=== PATIENT | female | born 1995 | race Caucasian/White ===

== ENCOUNTER 2017-03-27 00:25 | Emergency (ER) | payer SELFPAY ==
[~2017-03-27] VITALS: Ht 170.2 cm; Wt 68.2 kg
[~2017-03-27 00:25] MED LIST: ALBUTEROL0.09 MG/A4 IH; ZITHROMAX Z PA250 MG PO
[2017-03-27 00:31] VITALS: BP 126/75; TEMP 98
[2017-03-27 01:27] VITALS: PULSE 97
== END 2017-03-27 01:30 | disposition home or self-care (01) ==
LOC: COL.ER 00:25
DX: S61.212A Laceration without foreign body of right middle finger without damage to nail, initial encounter (principal); W25.XXXA Contact with sharp glass, initial encounter; Y92.009 Unspecified place in unspecified non-institutional (private) residence as the place of occurrence of the external cause

== ENCOUNTER 2017-04-06 13:05 | Emergency (ER) | payer OTHER ==
[2017-04-06 13:24] VITALS: BP 115/63; PULSE 88; TEMP 98.5
== END 2017-04-06 13:29 | disposition home or self-care (01) ==
LOC: COL.ER 13:05
DX: Z48.02 Encounter for removal of sutures (principal)

== ENCOUNTER → 2018-08-15 | Outpatient (CLI) | payer OTHER | LOC: MC.RAD 12:46 | DX: N64.4 Mastodynia (principal) ==

== ENCOUNTER 2018-08-31 19:13 | Emergency (ER) | payer OTHER ==
[~2018-08-31] VITALS: Ht 170.2 cm; Wt 77.3 kg
[2018-08-31 19:15] VITALS: TEMP 97.3
[2018-08-31] MEDS ORDERED: PREDNISONE20 MG PO (19:31)
[2018-08-31 20:13] VITALS: BP 117/72; PULSE 81
== END 2018-08-31 20:14 | disposition home or self-care (01) ==
LOC: COL.ER 19:13
DX: R21 Rash and other nonspecific skin eruption (principal)
CPT/HCPCS: J7512

== ENCOUNTER → 2019-06-02 | Outpatient (CLI) | payer OTHER ==
[~2019-06-02] VITALS: Ht 170.2 cm; Wt 83.0 kg
[~2019-06-02] MED LIST changes: +PREDNISONE20 MG PO; +PRENATAL PO
--- NOTE | 2019-06-02 16:30 | NUR ---
Pt here with decreased movement, 25.5 weeks gestation, G1L0. Pt states she hasn't felt "the normal kicks" but have felt him turning. Pt to [facility], explained. 1645:Pt states feeling the baby kick now that she has been on the monitor. FHR 135-140bpm with accels and moderate variability. [address] Mehta called and notified, see physician notification. Strip reviewed by Aayush RANDHAWA Discharge instructions given, pt verbalizes understanding. 1705:Pt to personal vehicle.
== END ==
LOC: LDRO 16:26
DX: O36.8130 Decreased fetal movements, third trimester, not applicable or unspecified (principal); Z3A.29 29 weeks gestation of pregnancy

== ENCOUNTER 2019-09-14 02:25 | Inpatient (IN) | payer OTHER ==
[2019-09-14] VITALS (48 sets, daily range): BP systolic 74–129; BP diastolic 43–93; PULSE 70–108; TEMP 97.9–98.3
[~2019-09-14] VITALS: Ht 170.2 cm; Wt 96.4 kg
[2019-09-14 04:14] LABS: BASO % 0.3 % (0.0-2.0); EOS # 0.3 (0.0-0.7); EOS % 2.2 % (0-4.0); GRAN # 9.4 (1.4-6.5); GRAN % 72.9 % (42.2-75.2); HEMOGLOBIN 10.4 g/dl (12.5-16.0); LYMPH # 2.3 (1.2-3.4); LYMPH % 17.7 % (20.0-51.0); MEAN CELL VOLUME 80 fl (80.0-100.0); MEAN CORPUSCULAR HEMOGLOBIN 26 pg (27.0-31.0); MEAN CORPUSCULAR HGB CONC 33 g/dl (33.0-37.0); MEAN PLATELET VOLUME 10.6 fl (7.4-10.4); MONO # 0.8 (0.1-0.6); PLATELET COUNT 154 K/mm3 (130-400); RED BLOOD COUNT 3.97 M/mm3 (4.10-5.30); REDCELL DISTRIBUTION WIDTH-CV 13.2 % (11.5-14.5)
[2019-09-14 04:15] LABS: HEMATOCRIT 31.6 % (37.0-47.0)
--- NOTE | 2019-09-14 06:15 | NUR ---
Report from Stanislav Mendoza RN and care of patient assumed. RN at bedside to introduce self and review plan of care. Patient resting comfortably with epidural. Patient denies need. Call light in reach.
[2019-09-14] MEDS ORDERED: PRENATAL (06:34)
--- NOTE | 2019-09-14 07:15 | NUR ---
See physician notification. Discussing order recommendations for Pitocin augmentation with patient. Patient denies questions and agrees. 0735- Pitocin started at 2 mU per protocol and order.
--- NOTE | 2019-09-14 08:25 | NUR ---
Dr. Terry at bedside. Reviews FHR strip. Discussing plan of care for potential AROM, patient agrees. 0827- SVE per provider . AROM by Dr. Terry for moderate amount of clear fluid. Pericare given and patient updated on plan of care. Denies need.
--- NOTE | 2019-09-14 09:55 | NUR ---
SVE /0 with bloody show noted. Patient repositioned LL. Roles updated on patient assessment and FHR strip.
--- NOTE | 2019-09-14 10:50 | NUR ---
See physician notification.
--- NOTE | 2019-09-14 11:40 | NUR ---
1140- SVE 2. 1145- Roles updated on patient assessment. Reviewed SVE and FHR strip. Orders to begin pushing. Hannon catheter removed prior to pushing, pericare performed. 1155- Patient begins pushing with contractions with RN at bedside. Moves vertex well. 1157- Roles called and requested for impending delivery. RN remains at bedside. Physician in transit. 1205- Physician at bedside. Patient continues pushing. FHR decelerates intermittently to 80 bpm. See physician documentation as physician discusses VAVD with patient, patient agrees. 1211- Vacuum applied to vertex per physician. Patient continues to push with contraction with vaccuum suction applied. No pop offs noted. 1212- Vaccuum removed by physician. head delivered easily followed by body. to mother's abdomen, care of to Andrzej Gonzalez RN. Apgars 8/9/9. 1215- Spont. delivery of placenta. Pitocin bolus started at 333 ml/hr/protocol. Fundal massage by RN, firms and at umbilicus. 1225- Patient reports feeling dizzy and lightheaded. BP noted 80/43 pulse 95. Patient becomes pale. HOB lowered and LR boluls infusing. Physician remains at bedside repairing perineal 2nd degree perineal and bilateral labial lacerations. LR bolus remains infusing as physician finishes repair. Patient rpeorts feeling much better. 1236- Physician remains on unit, updated on vital signs. Orders to continue 500 ml LR bolus and update physician if BP still hypotensive after completed. Vaginal bleeding WNL at this time.
--- NOTE | 2019-09-14 20:00 | NUR ---
Patient assisted to bathroom. While standing and moving patient reports she feels nauseated and is pale in color. Patient able to void and back to bed.
[2019-09-14 21:19] LABS: HEMOGLOBIN 8.1 g/dl (12.5-16.0)
[2019-09-15 01:00] VITALS: BP 103/46; PULSE 86; TEMP 98.3
[2019-09-15 05:25] VITALS: BP 106/59; PULSE 87; TEMP 98.1
[2019-09-15 09:50] VITALS: BP 91/53; PULSE 95; TEMP 98.3
[2019-09-15 13:00] VITALS: BP 115/73; PULSE 103; TEMP 98.2
[2019-09-15 16:00] VITALS: BP 108/67; PULSE 96; TEMP 97.7
[2019-09-15 19:45] VITALS: BP 108/65; PULSE 104; TEMP 98.2
[2019-09-16 09:00] VITALS: BP 129/77; PULSE 101; TEMP 97.9
[2019-09-16] MEDS ORDERED: IBU600 MG PO (10:12)
== END 2019-09-16 13:49 | disposition home or self-care (01) | DRG 807 ==
LOC: LDRO 02:25 → LDR 03:38 → OB 16:00
PROVIDERS: Obstetrics & Gynecology; ADMIT Obstetrics & Gynecology
PROC: 10E0XZZ Delivery of Products of Conception, External Approach (ICD-10-PCS; principal; 2019-09-14)
PROC: 0KQM0ZZ Repair Perineum Muscle, Open Approach (ICD-10-PCS; 2019-09-14)
DX: O48.0 Post-term pregnancy (principal); Z37.0 Single live birth; O70.1 Second degree perineal laceration during delivery; J45.909 Unspecified asthma, uncomplicated; O99.52 Diseases of the respiratory system complicating childbirth; Z3A.40 40 weeks gestation of pregnancy
CPT/HCPCS: J2405; J2590; J7120

== ENCOUNTER 2022-05-20 18:03 | Inpatient (IN) | payer OTHER ==
[2022-05-20] VITALS (17 sets, daily range): BP systolic 103–136; BP diastolic 55–76; PULSE 74–104; TEMP 97.8–97.9
[~2022-05-20] VITALS: Ht 172.7 cm; Wt 91.0 kg
[~2022-05-20 18:03] MED LIST changes: +IBU600 MG PO; +PRENATAL
--- NOTE | 2022-05-20 18:10 | NUR ---
PT TO UNIT AMBULATORY WITH SPOUSE WITH COMPLAINTS OF CTX. PT ORIENTED TO ROOM, PLACED ON EFMX2 AND VS OBTAINED BY DAY SHIFT STAFF.
[2022-05-20 19:42] LABS: BASO % 0.1 % (0.0-2.0); EOS # 0.1 K/mm3 (0.0-0.7); EOS % 1.2 % (0.0-4.0); GRAN # 7.8 K/mm3 (1.4-6.5); GRAN % 73.6 % (42.2-75.2); HEMOGLOBIN 10.8 g/dl (12.5-16.0); LYMPH # 1.7 K/mm3 (1.2-3.4); LYMPH % 15.8 % (20.0-51.0); MEAN CELL VOLUME 75 fl (80.0-100.0); MEAN CORPUSCULAR HEMOGLOBIN 24 pg (27-31); MEAN CORPUSCULAR HGB CONC 32 g/dl (33.0-37.0); MEAN PLATELET VOLUME 10.7 fl (7.4-10.4); MONO # 0.9 K/mm3 (0.1-0.6); MONO % 8.2 % (1.7-9.3); PLATELET COUNT 158 K/mm3 (130-400); RED BLOOD COUNT 4.48 M/mm3 (4.10-5.30); REDCELL DISTRIBUTION WIDTH-CV 16.5 % (11.5-14.5)
[2022-05-20 19:44] LABS: HEMATOCRIT 33.5 % (37.0-47.0)
--- NOTE | 2022-05-20 20:21 | NUR ---
1949- PT SITTING AT SIDE OF BED FOR EPIDURAL PLACEMENT. 1951- Olivier BOOGIE CRNA IN ROOM FOR EPIDURAL PLACEMENT. RISKS AND BENEFITS DISCUSSED WITH PT. PT OPTS FOR EPIDURAL PLACEMENT. 2012- TEST DOSE GIVEN BY Olivier BOOGIE CRNA. PT TOLERATED WELL. 2020- PT REPOSITIONED TO [facility] FOLLOWING EPIDURAL PLACEMENT.
--- NOTE | 2022-05-20 22:45 | NUR ---
2219- DR. CHAVEZ IN ROOM FOR DELIVERY. 2221- SVE OF COMPLETE. NYE DC'D BY DR. CHAVEZ, 200MLS URINE OUT. 2230- SPONTANEOUS VAGINAL DELIVERY OF VIABLE BABY GIRL. BABY TO MOTHER'S ABDOMEN. CORD CLAMPED BY DR. CHAVEZ AND CUT BY FOWalter. BABY CARES ASSUMED BY Chasidy PRYOR RN. 2238- SPONTANEOUS DELIVERY OF INTACT PLACENTA, TRAILING MEMBRANES REMOVED WITHOUT DIFFICULTY BY DR CHAVEZ. PITOCIN STARTED PER PROTOCOL AT 333ML/HR. DR. CHAVEZ INSERTS RED BENJAMÍN WHILE REPAIRING PERIURETHRAL LACERATION. ALSO REPAIRS SMALL LACERATION TO PERINEUM. 2244- RECOVERY STARTED.
[2022-05-21] VITALS (8 sets, daily range): BP systolic 114–127; BP diastolic 59–78; PULSE 71–94; TEMP 97.8–98.3
--- NOTE | 2022-05-21 02:00 | NUR ---
PT UP TO BATHROOM VIA [employer]. UNABLE TO VOID AT THIS TIME. ASSISTED WITH PERICARE, ICE PACK, PERIPAD, AND MESH UNDERWEAR APPLIED. PT TO VIA [employer]. ORIENTED TO ROOM, PT INSTRUCTED TO NOTIFY STAFF WHEN SHE NEEDS USE THE BATHROOM. IF UNABLE TO VOID BY 0430 WE WILL PERFORM AT STRAIGHT CATH TO EMPTY BLADDER. PT VERBALIZED UNDERSTANDING.
[2022-05-22 09:00] VITALS: BP 122/72; PULSE 99; TEMP 97.6
[2022-05-22] MEDS ORDERED: IBU800 M1 PO (10:23)
--- NOTE | 2022-05-22 12:00 | NUR ---
Discharge instructions and follow up care reviewed with pt and family at the bedside. Pt verbalized an understanding, agreed with the plan and states no questions or concerns at this time.
== END 2022-05-22 12:10 | disposition home or self-care (01) | DRG 807 ==
LOC: LDRO 18:03 → LDR 19:16 → OB 05-21 02:00
PROVIDERS: Obstetrics & Gynecology; ADMIT Obstetrics & Gynecology
PROC: 10E0XZZ Delivery of Products of Conception, External Approach (ICD-10-PCS; principal; 2022-05-20)
PROC: 0UQMXZZ Repair Vulva, External Approach (ICD-10-PCS; 2022-05-20)
PROC: 0HQ9XZZ Repair Perineum Skin, External Approach (ICD-10-PCS; 2022-05-20)
DX: O48.0 Post-term pregnancy (principal); Z37.0 Single live birth; Z3A.40 40 weeks gestation of pregnancy; O71.82 Other specified trauma to perineum and vulva; J45.909 Unspecified asthma, uncomplicated; O99.52 Diseases of the respiratory system complicating childbirth; O99.02 Anemia complicating childbirth; D64.9 Anemia, unspecified; O70.0 First degree perineal laceration during delivery; O76 Abnormality in fetal heart rate and rhythm complicating labor and delivery; Z23 Encounter for immunization
CPT/HCPCS: OP; J2405; J2590; J7120